=== PATIENT | female | born 1995 | race African-American/Black ===

== ENCOUNTER 2017-01-04 16:50 | Emergency (ER) | payer OTHER ==
[~2017-01-04] VITALS: Ht 160 cm; Wt 58.1 kg
[~2017-01-04 16:50] MED LIST: FLAGYL500 MG PO; VITAFOL-OB+DHA1 EACH PO
[2017-01-04 17:48] LABS: URINE BILIRUBIN NEGATIVE (Negative); URINE BLOOD NEGATIVE (Negative); URINE COLOR YELLOW; URINE GLUCOSE-RANDOM* NEGATIVE (Negative); URINE KETONES 2+ (Negative); URINE LEUKOCYTES-REFLEX NEGATIVE (Negative); URINE PROTEIN (DIPSTICK) NEGATIVE (Negative); URINE SPECIFIC GRAVITY <= 1.005 (1.003-1.035); URINE UROBILINOGEN 0.2 E.U./dl (0.2-1.0)
[2017-01-04 17:55] LABS: AMP/METHAMP Negative (Negative); BARBITURATES Negative (Negative); BENZODIAZEPINES Negative (Negative); COCAINE Negative (Negative); METHADONE Negative (Negative); OPIATES Negative (Negative); PCP Negative (Negative); THC Negative (Negative)
[2017-01-04 18:14] LABS: HEMATOCRIT 39.1 % (37.0-47.0); HEMOGLOBIN 13.4 gm/dL (12.0-15.0); MCH 26.9 pg (26.0-34.0); MCHC 34.3 g/dL (28.0-37.0); MCV 78.3 fL (80.0-100.0); PLATELET COUNT 140 thou/uL (150-400); RDW 16.9 % (10.5-14.5); WBC 4.4 thou/uL (4.0-11.0)
[2017-01-04 18:16] LABS: MANUAL DIFF YES
[2017-01-04 18:22] LABS: ANION GAP 11 mmol/L (7-16); BUN 6 mg/dL (7-18); CALCIUM 9.7 mg/dL (8.5-10.1); CHLORIDE 101 mmol/L (98-107); CO2 25 mmol/L (21-32); CREATININE 0.7 mg/dL (0.6-1.0); GLUCOSE 74 mg/dL (74-106); POTASSIUM 3.6 mmol/L (3.5-5.1); SODIUM 137 mmol/L (136-145)
[2017-01-04 18:27] LABS: ALBUMIN 4.7 g/dL (3.4-5.0); ALKALINE PHOSPHATASE 90 U/L (46-116); DIRECT BILIRUBIN < 0.1 mg/dL (<0.1-0.3); SGOT 36 U/L (15-37); SGPT 53 U/L (30-65); TOTAL BILIRUBIN 0.4 mg/dL (<0.1-1.0); TOTAL PROTEIN 8.4 g/dL (6.4-8.2)
[2017-01-04 18:51] LABS: ANISOCYTOSIS 1+; MICROCYTES 1+; TOTAL CELL COUNT 100
[2017-01-04] MEDS ORDERED: PRILOSEC OTC20 MG PO (18:59)
[2017-01-04] MEDS ORDERED: ZOFRAN ODT4 MG PO (19:00)
[2017-01-04 19:38] VITALS: BP 110/68
== END 2017-01-04 19:41 | disposition home or self-care (01) ==
LOC: ER 16:50
PROVIDERS: Emergency Medicine
DX: R53.1 Weakness (principal); R10.84 Generalized abdominal pain

== ENCOUNTER 2017-03-05 17:09 | Emergency (ER) | payer OTHER ==
[~2017-03-05] VITALS: Ht 160 cm; Wt 54.4 kg
--- NOTE | ~2017-03-05 | EKG ---
[address] [place] [address] ELECTROCARDIOGRAM REPORT Name: HARRY ARTEAGA [id number] Admission: 03/05/17 Attend Phys: Discharge: Date of : 89 Report #: [id number] THIS REPORT FOR: //name// [facility] ED Test Date: 2017-03-05 Test Time: 17:46:12 Pat Name: AHRRY PEACOCK Department: Room: Gender: F Offset Pressman: MARLENA : 1995 Requested By: Lola De La Paz Order Number: [id number] MD: Faizan Walters Measurements Intervals [place] Rate: 75 P: -14 [place]: 132 QRS: 64 QRSD: 84 T: 8 QT: 393 QTc: 439 Interpretive Statements Sinus rhythm Abnormal T, consider ischemia, anterior leads No previous ECG available for comparison Electronically Signed On 03-05-2017 18:08:14 [employer] by Faizan Walters [email or web address] <ELECTRONICALLY SIGNED> By: Faizan Walters MD 03/05/17 1808 1746 1746 MD [facility]
[~2017-03-05 17:09] MED LIST changes: +PRILOSEC OTC20 MG PO; +ZOFRAN ODT4 MG PO
[2017-03-05 18:19] LABS: HEMATOCRIT 38.9 % (37.0-47.0); HEMOGLOBIN 13.5 gm/dL (12.0-15.0); MCH 27.7 pg (26.0-34.0); MCHC 34.7 g/dL (28.0-37.0); PLATELET COUNT 152 thou/uL (150-400); RBC 4.86 mil/uL (4.20-5.00); RDW 15.6 % (10.5-14.5); WBC 3.8 thou/uL (4.0-11.0)
[2017-03-05 18:31] LABS: ANION GAP 11 mmol/L (7-16); BUN 12 mg/dL (7-18); CALCIUM 9.2 mg/dL (8.5-10.1); CHLORIDE 102 mmol/L (98-107); CO2 27 mmol/L (21-32); CREATININE 0.8 mg/dL (0.6-1.0); GLUCOSE 90 mg/dL (74-106); POTASSIUM 3.7 mmol/L (3.5-5.1); SODIUM 140 mmol/L (136-145)
[2017-03-05 18:40] LABS: TROPONIN-I < 0.04 ng/mL (<0.06)
[2017-03-05 18:54] LABS: ABSOLUTE NEUTROPHILS 1.7 thou/uL (1.4-8.2); ANISOCYTOSIS SLIGHT
[2017-03-05] MEDS ORDERED: IBUPROFEN 800800 MG PO (19:04)
[2017-03-05] MEDS ORDERED: FLEXERIL PO (19:04)
== END 2017-03-05 19:22 | disposition home or self-care (01) ==
LOC: ER 17:09
PROVIDERS: Nurse Practitioner Family
DX: M94.0 Chondrocostal junction syndrome [Tietze] (principal)

== ENCOUNTER 2017-04-15 22:40 | Emergency (ER) | payer OTHER ==
[~2017-04-15] VITALS: Ht 160 cm; Wt 54.4 kg
[~2017-04-15 22:40] MED LIST changes: +FLEXERIL PO; +IBUPROFEN 800800 MG PO
[2017-04-16 01:26] LABS: URINE BILIRUBIN NEGATIVE (Negative); URINE BLOOD NEGATIVE (Negative); URINE CLARITY SL CLOUDY; URINE COLOR YELLOW; URINE GLUCOSE-RANDOM* NEGATIVE (Negative); URINE KETONES TRACE (Negative); URINE LEUKOCYTES-REFLEX NEGATIVE (Negative); URINE NITRITE-REFLEX NEGATIVE (Negative); URINE PROTEIN (DIPSTICK) NEGATIVE (Negative)
[2017-04-16] MEDS ORDERED: PEPCID40 MG PO (01:34)
[2017-04-16] MEDS ORDERED: BENADRYL ALLERG25 MG PO (01:34)
== END 2017-04-16 02:23 | disposition home or self-care (01) ==
LOC: ER 22:40
PROVIDERS: Emergency Medicine
DX: L29.9 Pruritus, unspecified (principal); K21.9 Gastro-esophageal reflux disease without esophagitis; Z86.2 Personal history of diseases of the blood and blood-forming organs and certain disorders involving the immune mechanism

== ENCOUNTER 2019-10-24 18:30 | Emergency (ER) | payer OTHER ==
[~2019-10-24] VITALS: Ht 160 cm; Wt 57.1 kg
[~2019-10-24 18:30] MED LIST changes: +BENADRYL ALLERG25 MG PO; +PEPCID40 MG PO
[2019-10-24] MEDS ORDERED: NOHOMEMEDICATIONS (18:57)
[2019-10-24 20:12] LABS: URINE BILIRUBIN NEGATIVE (Negative); URINE BLOOD NEGATIVE (Negative); URINE CLARITY CLEAR; URINE COLOR YELLOW; URINE GLUCOSE-RANDOM* NEGATIVE (Negative); URINE KETONES TRACE (Negative); URINE LEUKOCYTES-REFLEX NEGATIVE (Negative); URINE NITRITE-REFLEX NEGATIVE (Negative); URINE PROTEIN (DIPSTICK) NEGATIVE (Negative)
[2019-10-24 20:34] VITALS: BP 117/72
== END 2019-10-24 20:34 | disposition home or self-care (01) ==
LOC: ER 18:30
PROVIDERS: Nurse Practitioner Family
DX: Z20.2 Contact with and (suspected) exposure to infections with a predominantly sexual mode of transmission (principal); R10.9 Unspecified abdominal pain; R14.0 Abdominal distension (gaseous); R11.0 Nausea; K21.9 Gastro-esophageal reflux disease without esophagitis; R51 Headache

== ENCOUNTER 2020-04-14 16:30 | Emergency (ER) | payer OTHER ==
[~2020-04-14] VITALS: Ht 160 cm; Wt 56.7 kg
[~2020-04-14 16:30] MED LIST changes: +NOHOMEMEDICATIONS
[2020-04-14 16:46] LABS: URINE BILIRUBIN NEGATIVE (Negative); URINE BLOOD NEGATIVE (Negative); URINE CLARITY SL CLOUDY; URINE COLOR YELLOW; URINE GLUCOSE-RANDOM* NEGATIVE (Negative); URINE KETONES NEGATIVE (Negative); URINE LEUKOCYTES-REFLEX TRACE (Negative); URINE NITRITE-REFLEX NEGATIVE (Negative); URINE PROTEIN (DIPSTICK) NEGATIVE (Negative); URINE SPECIFIC GRAVITY >= 1.030 (1.005-1.035)
[2020-04-14 17:00] LABS: ABSOLUTE NEUTROPHILS 3.9 thou/uL (1.4-8.2); BASOPHILS 0.6 % (0.0-2.0); EOSINOPHILS 0.6 % (0.0-3.0); HEMATOCRIT 39.3 % (37.0-47.0); HEMOGLOBIN 13.4 gm/dL (12.0-15.0); LYMPHOCYTES 37.2 % (24.0-44.0); MCH 28.7 pg (26.0-34.0); MCV 84.5 fL (80.0-100.0); MONOCYTES 10.6 % (1.0-8.0); RBC 4.66 mil/uL (4.20-5.00); RDW 15.3 % (10.5-14.5); WBC 7.6 thou/uL (4.0-11.0)
[2020-04-14 17:21] LABS: LARGE PLATELETS RARE; PLATELET COUNT 152 thou/uL (150-400)
[2020-04-14 17:32] LABS: ALBUMIN 4.3 g/dL (3.4-5.0); CALCIUM 9.4 mg/dL (8.5-10.1); CREATININE 0.9 mg/dL (0.6-1.0); POTASSIUM 3.7 mmol/L (3.5-5.1); TOTAL BILIRUBIN 0.6 mg/dL (0.2-1.0); TOTAL PROTEIN 8.4 g/dL (6.4-8.2)
[2020-04-14] MEDS ORDERED: ZOFRAN ODT4 MG PO (19:00)
[2020-04-14] MEDS ORDERED: VISTARIL 25 MG25 M1 PO (19:00)
[2020-04-14] MEDS ORDERED: NEXIUM40 MG PO (19:00)
[2020-04-14 19:14] VITALS: BP 101/68
== END 2020-04-14 19:13 | disposition home or self-care (01) ==
LOC: ER 16:30
PROVIDERS: Emergency Medicine
DX: R10.13 Epigastric pain (principal); K21.9 Gastro-esophageal reflux disease without esophagitis; Z86.2 Personal history of diseases of the blood and blood-forming organs and certain disorders involving the immune mechanism

== ENCOUNTER 2020-12-08 17:53 | Emergency (ER) | payer OTHER ==
[~2020-12-08] VITALS: Ht 160 cm; Wt 68.0 kg
[~2020-12-08 17:53] MED LIST changes: +NEXIUM40 MG PO; +VISTARIL 25 MG25 M1 PO
[2020-12-08] MEDS ORDERED: ENBRACE HR SOF1 EACH PO (18:12)
[2020-12-08] MEDS ORDERED: ASA81BEC PO (18:12)
[2020-12-08 19:45] VITALS: BP 107/77
== END 2020-12-08 19:56 | disposition home or self-care (01) ==
LOC: ER 17:53
DX: O9A.212 Injury, poisoning and certain other consequences of external causes complicating pregnancy, second trimester (principal); S30.1XXA Contusion of abdominal wall, initial encounter; K21.9 Gastro-esophageal reflux disease without esophagitis; Z79.82 Long term (current) use of aspirin; Z79.899 Other long term (current) drug therapy; Z3A.22 22 weeks gestation of pregnancy; Y04.0XXA Assault by unarmed brawl or fight, initial encounter; Y93.89 Activity, other specified; Y92.89 Other specified places as the place of occurrence of the external cause; Y99.8 Other external cause status

== ENCOUNTER 2021-03-10 00:27 | Emergency (ER) | payer BC, OTHER ==
[~2021-03-10] VITALS: Ht 160 cm; Wt 70.8 kg
[~2021-03-10 00:27] MED LIST changes: +ASA81BEC PO; +ENBRACE HR SOF1 EACH PO
[2021-03-10 01:12] LABS: ABSOLUTE NEUTROPHILS 5.2 thou/uL (1.4-8.2); BASOPHILS 0.4 % (0.0-2.0); EOSINOPHILS 0.3 % (0.0-3.0); HEMATOCRIT 30.6 % (37.0-47.0); HEMOGLOBIN 10.3 gm/dL (12.0-15.0); LYMPHOCYTES 15.9 % (24.0-44.0); MCH 25.6 pg (26.0-34.0); MCHC 33.7 g/dL (28.0-37.0); MONOCYTES 13.3 % (1.0-8.0); PLATELET COUNT 135 thou/uL (150-400); POLYS 70.1 % (36.0-66.0); RBC 4.02 mil/uL (4.20-5.00); RDW 16.9 % (10.5-14.5); WBC 7.4 thou/uL (4.0-11.0)
[2021-03-10 01:18] LABS: CALCIUM 9.1 mg/dL (8.5-10.1); CREATININE 0.6 mg/dL (0.6-1.0); POTASSIUM 3.8 mmol/L (3.5-5.1)
[2021-03-10 02:23] LABS: URINE BILIRUBIN NEGATIVE (Negative); URINE BLOOD NEGATIVE (Negative); URINE CLARITY CLEAR; URINE COLOR YELLOW; URINE GLUCOSE-RANDOM* NEGATIVE (Negative); URINE KETONES NEGATIVE (Negative); URINE LEUKOCYTES-REFLEX NEGATIVE (Negative); URINE NITRITE-REFLEX NEGATIVE (Negative); URINE PROTEIN (DIPSTICK) NEGATIVE (Negative); URINE SPECIFIC GRAVITY 1.015 (1.005-1.035)
[2021-03-10 02:54] VITALS: BP 125/74
== END 2021-03-10 02:55 | disposition home or self-care (01) ==
LOC: ER 00:27
PROVIDERS: Emergency Medicine
DX: O26.893 Other specified pregnancy related conditions, third trimester (principal); Z20.822 Contact with and (suspected) exposure to COVID-19; R19.7 Diarrhea, unspecified; K21.9 Gastro-esophageal reflux disease without esophagitis; Z3A.38 38 weeks gestation of pregnancy; Z79.899 Other long term (current) drug therapy